=== PATIENT | female | born 1990 | race Caucasian/White ===

== ENCOUNTER 2017-06-19 08:45 | Emergency (ER) | payer BC ==
--- NOTE | 2017-06-19 10:00 | ED ---
- HPI Summary HPI Summary: Patient is approximately 8 weeks confirmed by transvaginal US on 06/04/17, presents to the ED with CC of abdominal cramping. She states the pain comes in waves where is grows very intense and then will reduce. Pain is 8/10 and in the bilateral lower quadrants. She denies any vaginal bleeding or abnormal discharge. No history of spontaneous or induced abortions. Denies problems with her previous including gestational diabetes and preeclampsia. Denies pain in the upper right quadrant or back pain. Denies any urinary symptoms. She states she feels otherwise well and has not been having WORKMAN, SOB or chest pain. at bedside. She is comfortable on exam and 2 heat packs to the abdomen. She was seen by here family practioner 06/04 and confirmed with a blood test (although patient states she did not have an HCG), she was sent here and was confirmed with transvaginal. LMP was 10 weeks ago today, but transvaginal shows 8 week. Patient is concerned about this. Pain began yesterday and has progressively been worsening. - History of Current Complaint Chief Complaint: EDAbdPain Stated Complaint: 8 WEEKS PREG , CRAMPING Time Seen by Provider: 06/19/17 08:59 Hx Obtained From: Patient Chief Complaint: Concern for Embryonic Dem, Pain Onset/Duration: Started Hours Ago Timing: Intermittent Severity: Moderate Current Severity: Moderate Pain Intensity: 6 Character: Cramping Aggravating Factors: Nothing Alleviating Factors: Nothing Associated Signs and Symptoms: Positive: Nausea - Assessment Hx Now: Yes SAB: 0 IEA: 0 Hx Hysterectomy: No History of STI/STD: No - Risk Factors Ovarian Torsion Risk Factor: Reproductive Age - Additional Pertinent History Maternal Blood Type and Rh: O Positive Have You Ever Been Treated for Depression: No - Allergies/Home Medications Allergies/Adverse Reactions: Allergies Allergy/AdvReac Type Severity Reaction Status Date / Time Penicillins Allergy Unknown See Comment Verified 04/05/16 13:29 PMH/Surg Hx/FS Hx/Imm Hx Previously Healthy: Yes Endocrine/Hematology History: Denies: Hx Diabetes, Hx Thyroid Disease Cardiovascular History: Denies: Hx Hypertension Respiratory History: Denies: Hx Asthma, Hx Chronic Obstructive Pulmonary Disease (COPD) GI History: Denies: Hx Ulcer - Surgical History Surgery Procedure, Year, and Place: c section - Immunization History Hx Pertussis Vaccination: No Immunizations Up to Date: Unable to Obtain/Confirm Infectious Disease History: No Infectious Disease History: Denies: Hx Hepatitis, Hx Human Immunodeficiency Virus (HIV), History Other Infectious Disease, Traveled Outside the [place] in Last 30 Days - Family History Known Family History: Positive: None Family History: no cardiovascular issues in family lineage - Social History Occupation: Employed Full-time Lives: With Family Alcohol Use: None Hx Substance Use: No Substance Use Type: Reports: None Hx Tobacco Use: No Smoking Status (MU): Never Smoked Tobacco Review of Systems Constitutional: Negative Negative: Fever, Chills, Fatigue Eyes: Negative Cardiovascular: Negative Negative: Chest Pain Negative: Shortness Of Breath, Cough Positive: Abdominal Pain - cramping, Nausea. Negative: Vomiting, Diarrhea Genitourinary: Negative Positive: no symptoms reported Musculoskeletal: Negative Skin: Negative Psychological: Normal All Other Systems Reviewed And Are Negative: Yes Physical Exam - Physical Exam Triage Information Reviewed: Yes Vital Signs Reviewed: Yes Appearance: Positive: Well-Appearing, Well-Nourished Skin: Positive: Warm, Skin Color Reflects Adequate Perfusion Head/Face: Positive: Normal Head/Face Inspection Eyes: Positive: EOMI, VERONICA, Conjunctiva Clear Neck: Positive: Supple, No Lymphadenopathy Respiratory/Lung Sounds: Positive: Clear to Auscultation, Breath Sounds Present Cardiovascular: Positive: RRR, Pulses are Symmetrical in both Upper and Lower Extremities Abdomen Description: Positive: Soft, Other: - tenderness to the bilateral lower quadrants Bowel Sounds: Positive: Present Musculoskeletal: Positive: Strength/ROM Intact Neurological: Positive: Sensory/Motor Intact, Speech Normal Psychiatric: Positive: Affect/Mood Appropriate Diagnostics - Vital Signs Vital Signs Temp Pulse Resp BP Pulse Ox 06/19/17 08:47 97 F 71 16 119/59 100 - Laboratory Result Diagrams: 06/19/17 09:50 06/19/17 09:50 Lab Statement: Any lab studies that have been ordered have been reviewed, and results considered in the medical decision making process. Course/Dx - Course Course Of Treatment: Patient presents with CC of lower abdominal pain with 8 weeks confirmed by transvaginal US 3 weeks ago. Lab work obtained and shows no abnormalities. UA shows no infection. Transvaginal US shows: IMPRESSION: Single intrauterine gestation with a gestational age of 8 weeks 0 days. Estimated date of delivery is January 29, 2018. Small subchorionic hemorrhage is noted. HCG level at [id number] indicating viable based on 8 weeks . Patient is encouraged to follow up with OBGYN and discussed with patient possibilities of pain such as round ligament pain. Patient is acceptable to discharge plan and follow up. She notes to 5/10 pain on discharge. She declines offered medications of tylenol. Heat packs given. - Differential Diagnosis/HQI/PQRI: Incomplete , Missed , Spontaneous , Intrauterine - Diagnoses Provider Diagnoses: Intrauterine Discharge - Discharge Plan Condition: Stable Disposition: HOME Referrals: Thomas Diaz MD [Primary Care Provider] - Additional Instructions: Please follow up with your PCP As discussed, there is an intrauterine which is 8 weeks. If you have any heavy vaginal bleeding - please return to the ED Heat packs to the abdomen Tylenol is safe in Rest Drink plenty of water
[2017-06-19 10:01] LABS: Hematocrit 40 % (35-47); Hemoglobin 14.1 g/dl (12.0-16.0); Mean Corpuscular HGB Conc 35 g/dl (31-36); Mean Corpuscular Hemoglobin 32 pg (27-31); Mean Corpuscular Volume 90 fL (80-97); Mean Platelet Volume 7 um3 (7.4-10.4); Red Blood Count 4.46 10^6/ul (4.0-5.4); Red Cell Distribution Width 13 % (10.5-15); White Blood Count 9.8 10^3/ul (3.5-10.8)
[2017-06-19 10:03] LABS: Urine Bilirubin Negative (Negative); Urine Glucose Negative (Negative); Urine Nitrite Negative (Negative)
[2017-06-19 10:14] LABS: BUN/Creatinine Ratio 11.9 (8-20); Calcium 8.7 mg/dL (8.6-10.3); EGFR African American 156.1 (>60); EGFR Non-African American 121.4 (>60); Globulin 2.7 g/dL (2-4); Potassium 3.5 mmol/L (3.5-5.0); Total Bilirubin 0.7 mg/dL (0.2-1.0); Total Protein 6.7 g/dL (6.4-8.9)
--- NOTE | 2017-06-19 10:43 | RAD ---
Indication: Cramping, . Real-time sonography of the was performed utilizing transabdominal technique. There is a single intrauterine gestation with a gestational sac. pole is identified measuring 1.6 cm. heart activity is noted at 161 bpm. The best estimated gestational age is 8 weeks 0 days. The right ovary measures 3.3 x 2.1 x 2.7 cm. The left ovary measures 2.7 x 3.1 x 3.1 cm. Left corpus luteum cyst is noted. A small subchorionic hemorrhage is noted. IMPRESSION: Single intrauterine gestation with a gestational age of 8 weeks 0 days. Estimated date of delivery is January 29, 2018. Small subchorionic hemorrhage is noted.
[2017-06-19 11:24] VITALS: BP 109/65
== END 2017-06-19 11:23 | disposition home or self-care (01) ==
LOC: ED 08:45
DX: O26.891 Other specified pregnancy related conditions, first trimester (principal); R10.9 Unspecified abdominal pain; O46.8X1 Other antepartum hemorrhage, first trimester; Z3A.08 8 weeks gestation of pregnancy
CPT/HCPCS: 36415; 76801; 80053; 81003; 83605; 84702; 85025; 85610; 99282

== ENCOUNTER 2018-01-21 06:00 | Inpatient (IN) | payer OTHER ==
[2018-01-21] MEDS ORDERED: ceFOXitin 2 GM IVPREMIX* 2 GM/50 ML BAG ONE (06:03)
[2018-01-21] MEDS ORDERED: Sodium Citrate/Citric Acid* 15 ML UDC ONE (07:33)
[2018-01-21] MEDS ORDERED: Morphine PF AMP (0.5MG/ML)* 5 MG/10 ML AMP ONE (07:41)
[2018-01-21] MEDS ORDERED: Lidocaine 1%* 5 ML VIAL ONE (07:43)
[2018-01-21] MEDS ORDERED: EPHEDrine (Pressors)* 50 MG/ML VIAL ONE (08:22)
[2018-01-21] MEDS ORDERED: OXYTOCIN* 10 UNITS/ML 1 ML VIAL ONE (08:31)
[2018-01-21] MEDS ORDERED: Phenylephrine INJ* 10 MG/ML 1 ML VIAL (10 MG) ONE (08:31)
[2018-01-21] MEDS ORDERED: Ketorolac INJ* 30 MG/ML 1 ML VIAL ONE (08:47)
[2018-01-21] MEDS ORDERED: oxyCODONE/Acetamin 5/325 MG* TAB PO PRN (09:06)
[2018-01-21] MEDS ORDERED: Zolpidem TAB* 5 MG PO PRN (09:06)
[2018-01-21] MEDS ORDERED: Witch Hazel PAD* JAR TOPICAL PRN (09:06)
[2018-01-21] MEDS ORDERED: Glycerin ADULT SUPP PR PRN (09:06)
[2018-01-21] MEDS ORDERED: Dibucaine 1% 28.35 GM TUBE PR PRN (09:06)
[2018-01-21] MEDS ORDERED: Ondansetron INJ* 2 MG/ML VIAL IV PRN ×2 (09:11→09:14)
[2018-01-21] MEDS ORDERED: diPHENhydraMINE IV* 50 MG/ML 1 ml VIAL (BENADRYL) IV PRN (09:11)
[2018-01-21] MEDS ORDERED: Nalbuphine* 10 MG/ML 1 ML VIAL IV PRN (09:11)
[2018-01-21] MEDS ORDERED: DiMENhydriNATE IV* 50 MG/ML VIAL IV PUSH PRN (09:11)
[2018-01-21] MEDS ORDERED: Naloxone* 0.4 MG/ML 1 ML VIAL IV PRN ×2 (09:11→09:14)
[2018-01-21] MEDS ORDERED: oxyCODONE TAB* 5 MG TAB PO PRN (09:11)
[2018-01-21] MEDS ORDERED: Ketorolac INJ* 30 MG/ML 1 ML VIAL IV PRN (09:11)
[2018-01-21] MEDS ORDERED: fentaNYL* 50 MCG/ML 2 ML VIAL (100 MCG VIAL) IV PRN (09:14)
[2018-01-21] MEDS ORDERED: Oxytocin in LR* 20 UNITS/1,000 ML BAG IVPB SCH (10:00)
[2018-01-21] MEDS: Acetaminophen TAB* 325 MG PO PRN ×2 (11:25→21:01)
[2018-01-21] MEDS: Simethicone TAB* 80 MG TAB.CHEW PO SCH ×3 (12:31→21:01)
[2018-01-21] MEDS: Docusate CAP* 100 MG PO SCH (14:50)
[2018-01-21] MEDS: Ibuprofen TAB* 600 MG PO PRN (17:08)
--- NOTE | 2018-01-21 22:33 | OP ---
DATE OF OPERATION: 01/21/18 - ROOM #118 DATE OF : 88 SURGEON: Aleksander Smalls MD FIRE INSPECTOR: Marco A Hutton MD PRE-OP DIAGNOSIS: Previous section. POST-OP DIAGNOSES: Previous section and pelvic adhesions. OPERATIVE PROCEDURE: Low transverse section and lysis of adhesions. COMPLICATIONS: None. ESTIMATED BLOOD LOSS: 600 cc. FINDINGS: This is a 27-year-old 2, para 1 with a previous section, who elected repeat. At the time of , she had a viable male, Apgars were 9 and 9, weight was 7 pounds 14 ounces boy, viable. There were adhesions at the vesicoperitoneal fold to the anterior uterus as well as omental adhesions to the omentum to the anterior abdominal wall. There, the bladder was scarred cephalad. DESCRIPTION OF PROCEDURE: The patient identified and procedure identified as low transverse section. The patient was taken to the operating room and prepped and draped in the usual fashion in the left lateral recumbent position under spinal anesthesia. A Pfannenstiel incision was made through the old incision, carried down through fat, fascia, and peritoneum. The adhesions of the anterior vesicoperitoneal fold were dissected off the anterior uterus in order to make a space for uterine incision. This was made in a transverse fashion, extended laterally using bandage scissors and blunt dissection. The above infant was delivered through the incision with ease. The cord was doubly clamped and cut, and the was handed to the awaiting tablet machine operator. Cord blood was obtained. Placenta was delivered spontaneously. The uterus was wiped out with a wet lap sponge. The uterine incision was then closed using 0 Polysorb in a running fashion. A second layer was used to imbricate the first layer. Good hemostasis. The uterus was placed back in the abdominal cavity. The areas of incision and adhesions were inspected, found to be hemostatic. Peritoneum was then closed using 3-0 Polysorb in a running fashion. Good hemostasis in the subrectus layers using a Bovie. The fascia was closed using 0 Polysorb in a running fashion. Good hemostasis was achieved in the subcu. Copious irrigation was utilized and suctioned out, and the skin was closed with 4-0 Monocryl in a subcuticular fashion. [id number]/[facility] #: [id number] [facility]
[2018-01-22] MEDS: Ibuprofen TAB* 600 MG PO PRN ×3 (04:08→17:20)
[2018-01-22] MEDS: Acetaminophen TAB* 325 MG PO PRN ×2 (04:08→15:00)
[2018-01-22 07:08] LABS: ABS Basophils 0 10^3/ul (0-0.2); ABS Eosinophils 0.1 10^3/ul (0-0.6); ABS Lymphocytes 1.1 10^3/ul (1.0-4.8); ABS Neutrophils 10.9 10^3/ul (1.5-7.7); ABS Nucleated RBC 0 10^3/ul; Eosinophil % 1.1 % (0-6); Hematocrit 34 % (35-47); Hemoglobin 11.5 g/dl (12.0-16.0); Mean Corpuscular HGB Conc 34 g/dl (31-36); Mean Corpuscular Hemoglobin 31 pg (27-31); Mean Corpuscular Volume 90 fL (80-97); Mean Platelet Volume 7.1 um3 (7.4-10.4); Nucleated Red Blood Cells % 0.1; Platelet Count 159 10^3/ul (150-450); Red Blood Count 3.73 10^6/ul (4.00-5.40); Red Cell Distribution Width 14 % (10.5-15); White Blood Count 13.2 10^3/ul (3.5-10.8)
[2018-01-22] MEDS ORDERED: Ferrous Gluconate TAB* 324 MG TAB PO SCH (09:00)
[2018-01-22] MEDS: Simethicone TAB* 80 MG TAB.CHEW PO SCH ×4 (09:23→20:59)
[2018-01-22] MEDS: oxyCODONE/Acetamin 5/325 MG* TAB PO PRN ×2 (09:23→18:43)
[2018-01-22] MEDS: Docusate CAP* 100 MG PO SCH ×3 (09:23→21:00)
[2018-01-23] MEDS: oxyCODONE/Acetamin 5/325 MG* TAB PO PRN ×3 (00:57→21:18)
[2018-01-23] MEDS: Ibuprofen TAB* 600 MG PO PRN ×4 (00:57→19:45)
[2018-01-23] MEDS: Simethicone TAB* 80 MG TAB.CHEW PO SCH ×4 (08:36→20:38)
[2018-01-23] MEDS: Docusate CAP* 100 MG PO SCH ×3 (08:36→20:38)
[2018-01-23] MEDS: LoraTADine TAB(NF) 10 MG TAB (AUTOSUB to CETIRIZINE) PO PRN (11:23)
[2018-01-23] MEDS: Acetaminophen TAB* 325 MG PO PRN (16:08)
[2018-01-24] MEDS: Ibuprofen TAB* 600 MG PO PRN ×2 (02:13→08:33)
[2018-01-24] MEDS: Acetaminophen TAB* 325 MG PO PRN ×2 (05:07→12:53)
[2018-01-24] MEDS: Docusate CAP* 100 MG PO SCH ×2 (08:33→13:00)
[2018-01-24] MEDS: LoraTADine TAB(NF) 10 MG TAB (AUTOSUB to CETIRIZINE) PO PRN (08:33)
[2018-01-24] MEDS: Simethicone TAB* 80 MG TAB.CHEW PO SCH ×2 (08:33→13:00)
[2018-01-24] MEDS ORDERED: Scopolamine PATCH Remove* 1 NOTE MISC PATCH OFF PRN (09:12)
[2018-01-24 09:18] VITALS: BP 115/76
== END 2018-01-24 13:13 | disposition home or self-care (01) | DRG 540 ==
LOC: MCHOB 06:00
PROVIDERS: ADMIT Obstetrics & Gynecology; ATTEND Obstetrics & Gynecology
PROC: 0DNU0ZZ Release Omentum, Open Approach (ICD-10-PCS; 2018-01-21)
PROC: 10D00Z1 Extraction of Products of Conception, Low, Open Approach (ICD-10-PCS; principal; 2018-01-21 07:45)
DX: O34.211 Maternal care for low transverse scar from previous cesarean delivery (principal); O99.89 Other specified diseases and conditions complicating pregnancy, childbirth and the puerperium; N73.6 Female pelvic peritoneal adhesions (postinfective); Z3A.39 39 weeks gestation of pregnancy; Z37.0 Single live birth
CPT/HCPCS: 36415; 85025; A9270-GY; J0694; J1885; J2405; J2590

== ENCOUNTER 2019-03-15 18:36 | Emergency (ER) | payer BC ==
--- OUTSIDE RECORDS SUMMARY | 2019-03-15 18:58 | XMS REPORT | Continuity of Care Document ---
:1990 External Reference #:[id number] Author Name Mary Khan CNM Address [address] [place] [address] Care Team Providers Name Role Phone Thomas Diaz M.D. 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 [phone] Problems Active Problems Provider Date H/O: section Anaid Martínez CNM Onset: 11/11/2018 Note: x 2 Social History Type Date Description Comments Sex Unknown Cigarette Use Does Not Smoke Cigarettes ETOH Use Denies alcohol use Tobacco Use Start: Unknown Patient has never smoked Recreational Drug Use Denies Drug Use Smoking Status Reviewed: 03/08/18 Patient has never smoked Seat Belt/Car Seat Always uses seat belt Allergies, Adverse Reactions, Alerts Description No Known Drug Allergies Medications Active Medications SIG Qnty Indications Ordering Provider Date Ibuprofen Start 1-3 days 30tabs Anaid Martínez CNM 11/11/2018 600mg before menses and Tablets continue for first 2 days of cycle. 1 by mouth every 6 hours as needed pain Breast Pump double electric 1units Renea Aldana, 08/09/2015 [facility] for LM lactating mother CBD Oil Unknown Medications Administered in Office Medication SIG Qnty Indications Ordering Provider Date PT SCRN Tbco Id as Non User Mary Khan CNM 03/08/2019 Injection PT SCRN Tbco Id as Non User Aleksander Smalls M.D. 03/08/2018 Injection PT SCRN Tbco Id as Non User Aleksander Smalls M.D. 02/15/2018 Injection PT SCRN Tbco Id as Non User Aleksander Smalls M.D. 01/13/2018 Injection Immunizations CPT Code Status Date Vaccine Lot # [id number] Given 11/02/2017 Tetnus, Diptheria Toxoids And Acellular Pertussis, [id number] PT > 7Yrs Old 11166 Given 07/08/2017 Influenza Virus Vaccine Split Virus Use For [id number] Individual 3Yr Older [id number] Given 06/17/2015 Tetnus, Diptheria Toxoids And Acellular Pertussis, [id number] PT > 7Yrs Old Vital Signs Date Vital Result Comment 03/08/2019 1:39pm BP Systolic 110 mmHg BP Diastolic 68 mmHg Height 58.75 inches 4'10.75" Weight 131.00 lb BMI (Body Mass Index) 26.7 kg/m2 Last Menstrual Period [id number] 3 Parity 2 11/11/2018 11:29am BP Systolic 112 mmHg BP Diastolic 62 mmHg Height 58.75 inches 4'10.75" Weight 128.00 lb BMI (Body Mass Index) 26.1 kg/m2 Last Menstrual Period [id number] 3 Parity 2 Results Description No Information Available Procedures Date Code Description Status 03/08/2019 43315 Echography Transvaginal Completed Medical Devices Description No Information Available Encounters Type Date Location Provider Dx Diagnosis Office Visit 03/08/2019 [facility] Mary Khan, O36.80x0 w 2:00p CNGuerda inconclusive viability, unsp Assessments Date Code Description Provider 03/08/2019 O36.80x0 with inconclusive viability, Mary Khan CNM not applicable or unspecified 03/08/2019 O26.91 related conditions, unspecified, Ultrasounds first trimester 11/11/2018 N94.6 Dysmenorrhea, unspecified Anaid Martínez CNM Plan of Treatment Future Appointment(s):03/30/2019 9:30 am - Mee Skinner MD at [facility]08/2018 9:00 am - Ultrasounds at [facility]03/10/2019 9:00 am - Laboratory at [facility]04/13/2019 11:00 am - Tanesha Gonzalez CNM at [facility]04/13 10:30 am - Ultrasounds at [facility]03/08/2019 - TONIA ShermanMO36.80x0 with inconclusive viability, not applicable or unspecifiedComments:Will plan serial HCG draws and a repeat sono to confirm viability. Sono today with <5 week sac, no cardiac activity. Bleeding and other precautions reviewed. Return call for questions. Call for lab result on wednesday. Functional Status Description No Information Available Mental Status Description No Information Available Referrals Description No Information Available
--- NOTE | 2019-03-15 19:18 | ED ---
GI/ HPI - HPI Summary HPI Summary: 29 year old F presenting to [facility] accompanied by female family member complains of left sided abdominal cramping described as squeezing since yesterday morning , and vaginal spotting and bleeding that is dark and bright red since yesterday afternoon. Patient states she is 7 weeks . The patient rates the pain 6/ 10 in severity. Symptoms aggravated by nothing. Symptoms alleviated by nothing. Patient reports dysuria. Patient denies fever, diarrhea, constipation, vaginal discharge. Patient states she is nauseous and fatigued which is normal with her . Patient states she has been seen by OBGYN to have an US but patient states she is too early in her for OBGYN to visualize her . Patient states she had 2 blood tests done 2 weeks ago. Patient states this is her 3rd . Patient states that with her first , she had an emergency , and that with her second , she had a scheduled C- section. Patient states that both her previous pregnancies were full term. No cigarettes, no alcohol with this , no drugs. Patient reports sexual activity 3 days ago. Medications reviewed. Allergies noted. - History of Current Complaint Chief Complaint: EDOBProblems Time Seen by Provider: 03/15/19 19:03 Stated Complaint: 7 WKS PREG/BLEEDING PER PT Hx Obtained From: Patient Onset/Duration: Started Days Ago - 1, Still Present Timing: Constant Severity: Moderate Current Severity: Moderate Pain Intensity: 6 Associated Signs and Symptoms: Positive: Negative - fever, diarrhea, constipation, vaginal discharge, Dysuria Aggravating Factor(s): Nothing Alleviating Factor(s): Nothing - Allergy/Home Medications Allergies/Adverse Reactions: Allergies Allergy/AdvReac Type Severity Reaction Status Date / Time Penicillins Allergy Unknown Verified 01/20/18 15:26 Reaction Details Home Medications: Home Medications Docosahexanoic Acid [Dha Nathalie 3] 100 mg PO DAILY 03/15/19 [History Confirmed ] Vitamin TAB* 1 tab PO DAILY 03/15/19 [History Confirmed 03/15/19] PMH/Surg Hx/FS Hx/Imm Hx Endocrine/Hematology History: Denies: Hx Diabetes, Hx Thyroid Disease Cardiovascular History: Denies: Hx Hypertension Respiratory History: Denies: Hx Asthma, Hx Chronic Obstructive Pulmonary Disease (COPD) GI History: Denies: Hx Ulcer - Surgical History Surgery Procedure, Year, and Place: c section x2 Infectious Disease History: No Infectious Disease History: Denies: Hx Hepatitis, Hx Human Immunodeficiency Virus (HIV), History Other Infectious Disease, Traveled Outside the [place] in Last 30 Days - Family History Known Family History: Negative: Cardiac Disease Family History: no cardiovascular issues in family lineage - Social History Alcohol Use: None Hx Substance Use: No Substance Use Type: Reports: None Hx Tobacco Use: No Smoking Status (MU): Never Smoked Tobacco Have You Smoked in the Last Year: No Review of Systems Negative: Fever Gastrointestinal: Negative - constipation Positive: Other - left sided abdominal cramping. Negative: Diarrhea Positive: dysuria, other - vaginal spotting and bleeding. Negative: discharge All Other Systems Reviewed And Are Negative: Yes Physical Exam - Summary Physical Exam Summary: Constitutional: Well-developed, Well-nourished, Alert. (-) Distressed Skin: Warm, Dry HENT: Normocephalic; Atraumatic Eyes: Conjunctiva normal Neck: Musculoskeletal ROM normal neck. (-) JVD, (-) Stridor, (-) Tracheal deviation Cardio: Rhythm regular, rate normal, Heart sounds normal; Intact distal pulses; The pedal pulses are 2+ and symmetric. Radial pulses are 2+ and symmetric. (-) Murmur Pulmonary/Chest wall: Effort normal. (-) Respiratory distress, (-) Wheezes, (-) Rales Abd: Mild LLQ tenderness Musculoskeletal: (-) Edema Lymph: (-) Cervical adenopathy Neuro: Alert, Oriented x3 Psych: Mood and affect Normal Vaginal exam chaperoned by nurse: closed cervic, no blood in the vault Triage Information Reviewed: Yes Vital Signs On Initial Exam: Initial Vitals Temp Pulse Resp BP Pulse Ox 98.8 F 70 16 130/76 99 03/15/19 18:46 03/15/19 18:46 03/15/19 18:46 03/15/19 18:46 03/15/19 18:46 Vital Signs Reviewed: Yes Diagnostics - Vital Signs Vital Signs Temp Pulse Resp BP Pulse Ox 03/15/19 18:46 98.8 F 70 16 130/76 99 - Laboratory Result Diagrams: 03/15/19 19:31 03/15/19 19:31 Lab Statement: Any lab studies that have been ordered have been reviewed, and results considered in the medical decision making process. - Ultrasound Transvaginal Ultrasound Interpretation Completed By: Radiologist Summary of Ultrasound Findings: Live intrauterine of 6 weeks and 3 days CURTIS by current ultrasound is 11/05/2019. ED physician has reviewed this report. Re-Evaluation - Re-Evaluation First Eval Re-Evaluation Time: 21:46 Comment: patient requesting to leave before US results. patient told that we will call her if US results are positive. she agrees to turkey picker her prescription from her pharmacy and follow up with her OBGYN. patient was encouraged to come back to ED for worsening vaginal bleeding or abdominal pain GIGU Course/Dx - Course Course Of Treatment: Patient is here with left lower quadrant pain and vaginal bleeding in the setting of a . Patient has not had a confirmed IUP so an ultrasound was performed which showed a 6 week IUP. Patient does not need Jaz per her blood type. Patient had a closed cervical os. Patient was encouraged follow up with her [facility]. 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 Please follow up with your OBGYN. Please make all follow-ups in 1-3 days unless I advise you otherwise. PLEASE RETURN TO EMERGENCY DEPARTMENT FOR ANY NEW OR WORSENING SYMPTOMS worsening vaginal bleeding or abdominal pain. - Billing Disposition and Condition Condition: STABLE Disposition: Home - Attestation Statements Document Initiated by Maggieibe: Yes Documenting Scribe: Miriam Martinez Provider For Whom Shira is Documenting (Include Credential): Esa Zarate MD Scribe Attestation: Miriam Jamil, scribed for Esa Zarate MD on 03/16/19 at 0224. Scribe Documentation Reviewed: Yes Provider Attestation: The documentation as recorded by the Miriam marroquin accurately reflects the service I personally performed and the decisions made by me, Esa Zarate MD Status of Scribe Document: Viewed
[2019-03-15 19:38] LABS: ABS Basophils 0.1 10^3/ul (0-0.2); ABS Eosinophils 0.1 10^3/ul (0-0.6); ABS Lymphocytes 1.7 10^3/ul (1.0-4.8); ABS Monocytes 0.9 10^3/ul (0-0.8); ABS Neutrophils 11.9 10^3/ul (1.5-7.7); Eosinophil % 0.9 %; Hematocrit 38 % (35-47); Hemoglobin 13.5 g/dL (12.0-16.0); Lymphocyte % 11.5 %; Mean Corpuscular HGB Conc 35 g/dL (31-36); Mean Corpuscular Hemoglobin 32 pg (27-31); Mean Corpuscular Volume 91 fL (80-97); Mean Platelet Volume 7.5 fL (7.4-10.4); Nucleated Red Blood Cells % 0.1; Platelet Count 228 10^3/uL (150-450); Red Blood Count 4.19 10^6 /uL (3.70-4.87); Red Cell Distribution Width 12 % (10-15); White Blood Count 14.7 10^3/uL (3.5-10.8)
[2019-03-15 19:54] LABS: Albumin 4.2 g/dL (3.2-5.2); Albumin/Globulin Ratio 1.8 (1-3); BUN/Creatinine Ratio 21.4 (8-20); Calcium 9.1 mg/dL (8.6-10.3); EGFR African American 153.8 (>60); EGFR Non-African American 127.1 (>60); Globulin 2.4 g/dL (2-4); Potassium 3.6 mmol/L (3.5-5.0); Total Bilirubin 0.3 mg/dL (0.2-1.0); Total Protein 6.6 g/dL (6.4-8.9)
[2019-03-15 19:59] LABS: Urine Appearance Cloudy; Urine Bacteria 1+ (Absent); Urine Bilirubin Negative (Negative); Urine Blood 3+ (Negative); Urine Color Yellow; Urine Glucose Negative (Negative); Urine Ketones Negative (Negative); Urine Nitrite Negative (Negative); Urine Protein 1+(30 mg/dL) (Negative); Urine Red Blood Cell 3+(>10/hpf) (Absent); Urine Squamous Epithelial Cell Present (Absent); Urine Urobilinogen Negative (Negative); Urine White Blood Cell 3+(>20/hpf) (Absent)
[2019-03-15] MEDS ORDERED: Cephalexin CAP* 500 MG PO ONE (21:52)
[2019-03-15 22:02] VITALS: BP 120/72
== END 2019-03-15 22:00 | disposition home or self-care (01) ==
LOC: ED 18:36
DX: N39.0 Urinary tract infection, site not specified (principal); R10.9 Unspecified abdominal pain; Z79.899 Other long term (current) drug therapy; Z88.0 Allergy status to penicillin
CPT/HCPCS: 36415; 76817; 80053; 81003; 81015; 84702; 85025; 86900; 86901; 87077; 87086; 87186; 99283; A9270-GY